=== PATIENT | male | born 1960 | race Caucasian/White ===

== ENCOUNTER → 2016-09-22 | Outpatient (CLI) | payer SELFPAY ==
[2015-11-20 21:59] VITALS: BP 155/96
--- NOTE | 2016-09-22 16:58 | CT ---
HISTORY: Screening Cardiac calcium scoring. Technique: Multiple axial images of the chest were obtained on a [address] from the aortic arch to the base of the heart with noncontrast prospective gating. AEC was utilized. Findings: A total calcium score of 32 is observed. The patient is between the 25th and 50th percentile for ag e and sex. At least mild atherosclerotic plaque is present with mild or minimal narrowings likely. There is an incidental 3 mm lingular pulmonary nodule which is likely postinflammatory but for which a 6-12 months follow up dedicated CT chest without contrast is recommended. Thoracic spondylosis i s noted. IMPRESSION: Abnormal Coronary calcium score and incidentals as above. Reported By:
== END ==
LOC: RAD 14:10
PROVIDERS: ATTEND Internal Medicine
DX: Z13.6 Encounter for screening for cardiovascular disorders (principal)

== ENCOUNTER → 2017-07-06 | Outpatient (CLI) | payer OTHER ==
[2015-11-20 21:59] VITALS: BP 155/96
--- NOTE | 2017-07-06 17:37 | RAD ---
HISTORY: Follow-up for pulmonary nodule Study: PA and lateral chest Comparison: 05/30/2013 Findings: There are small bilateral nodular opacities in both lung bases, each measuring approximately 9 mm in maximum dimension. These are symmetric in location and most likely represent nipple shadows. Follow -up PA chest with nipple markers in place is recommended. There is a very questionable nodule in the right lower lobe measuring approximately 5 mm in maximum dimension. It is unknown if this is the no dule referred to in the history. No other nodules are identified. The heart size is normal. Mild t horacic spondylosis is present. IMPRESSION: 1. No radiographic evidence of acute cardiopulmonary disease. 2. Probable nipple shadows in both lung bases. Follow-up PA chest with nipple markers in place is r ecommended. 3. Questionable tiny nodule in the right lower lobe near the lateral costophrenic angle. 4. If there is a known nodule that is not described , then CT scan is recommended. Reported By:
== END | disposition home or self-care (01) ==
LOC: RAD 11:02
PROVIDERS: ATTEND Internal Medicine
DX: R91.1 Solitary pulmonary nodule (principal)
CPT/HCPCS: 71046

== ENCOUNTER → 2017-07-26 | Outpatient (CLI) | payer OTHER ==
[2015-11-20 21:59] VITALS: BP 155/96
[2017-07-26 14:28] LABS: BASOPHILS % (AUTO) 0.4 % (0.2-1.0); EOSINOPHILS # (AUTO) 0.2 x10^3/uL (0.0-0.2); EOSINOPHILS % (AUTO) 1.8 % (0.9-2.9); HEMATOCRIT 41.4 % (42.0-54.0); HEMOGLOBIN 14.3 g/dL (13.5-18.0); LYMPHOCYTES % (AUTO) 31.4 % (21.0-51.0); MEAN CORPUSCULAR HEMOGLOBIN 28.4 pg (27.0-34.0); MEAN CORPUSCULAR HGB CONC 34.6 g/dL (33.0-35.0); MEAN CORPUSCULAR VOLUME 81.9 fL (80.0-100.0); MEAN PLATELET VOLUME 8.1 fL (7.4-11.0); MONOCYTES # (AUTO) 0.7 x10^3/uL (0.3-0.8); MONOCYTES % (AUTO) 7.2 % (0.0-13.0); NEUTROPHILS # (AUTO) 5.7 x10^3/uL (2.2-4.8); NEUTROPHILS % (AUTO) 59.2 % (42.0-75.0); PLATELET COUNT 250 X10^3/uL (150.0-450.0); RED BLOOD COUNT 5.06 X10^6/uL (4.7-6.0); RED CELL DISTRIBUTION WIDTH 14.3 % (11.6-16.5); WHITE BLOOD COUNT 9.7 X10^3/uL (3.6-10.0)
[2017-07-26 14:40] LABS: ALANINE AMINOTRANSFERASE 26 Units/L (12-78); ALBUMIN 3.8 g/dL (3.4-5.0); ALKALINE PHOSPHATASE 40 Units/L (46-116); ASPARTATE AMINO TRANSFERASE 18 Units/L (15-37); BLOOD UREA NITROGEN 12 mg/dL (7-18); CALCIUM 9.1 mg/dL (8.5-10.1); CARBON DIOXIDE 29.4 mmol/L (21-32); CHLORIDE 101 mmol/L (98-107); COR NA(FOR HYPERGLY) 140 mmol/L (136-145); SODIUM 140 mmol/L (136-145); TOTAL PROTEIN 7.7 g/dL (6.4-8.2); eGFR BLACK RACES > 60 (>60); eGFR NON BLACK RACES > 60 (>60)
== END ==
LOC: LAB 14:15
PROVIDERS: ATTEND Dermatology
DX: Z79.899 Other long term (current) drug therapy (principal)
CPT/HCPCS: 36415; 80053; 85025